=== PATIENT | male | born 1965 | race Caucasian/White ===

== ENCOUNTER 2019-05-12 03:27 | Outpatient (CLI) | payer BC, SELFPAY ==
--- NOTE | 2019-05-12 13:13 | PFT_ITS ---
PULMONARY FUNCTION TEST REPORT DATE OF SERVICE: May 12, 2019 REQUESTING PROVIDER: Dr. Crawford Spirometry shows borderline mild obstructive airways disease with no significant bronchodilator response. IMPRESSION: Borderline mild obstructive airways disease with no bronchodilator response. This may be a normal variant. Clinical correlation recommended. /[facility]/ ++++++++++++++++++++++++++++++++++++ METHACHOLINE CHALLENGE TEST REPORT DATE OF SERVICE: May 12, 2019 After borderline mild obstruction on baseline spirometry, patient underwent methacholine challenge testing up to a methacholine concentration of 8 mg/mL. At that point the patient had a 33% drop in FEV1. IMPRESSION: Strongly positive methacholine challenge test. Clinical correlation recommended. /[facility] D/
[2019-05-12] MEDS: Methacholine 100 MG VIAL IH (16:17)
[2019-05-12] MEDS: Inhaler, Assist Device 1 EACH MC (16:17)
[2019-05-12] MEDS: Albuterol HFA 18 GM 200 PUFF INH IH (16:18)
== END 2019-05-12 03:47 ==
PROVIDERS: PCP Nurse Practitioner Family; Visit Provider Internal Medicine
DX: J45.909 Unspecified asthma, uncomplicated (principal)
CPT/HCPCS: 94060; 95070; J7674

== ENCOUNTER 2019-08-09 00:42 | Outpatient (CLI) | payer BC, SELFPAY ==
--- NOTE | 2019-08-09 | DI.RAD_ITS ---
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 There is some loss of the lumbar lordosis. Mild left convex lumbar scoli osis noted. Minimal hypertrophic endplate spurring noted throughout the lumbar spine. Mild facet hy pertrophic changes noted as well. No other focal bony abnormality seen. The intervertebral disc spaces are maintained. IMPRESSION: Mild degenerative changes of the lumbar spine.
--- NOTE | 2019-08-09 | DI.RAD_ITS ---
EXAM: XR CERVICAL SP MACK TRAUMA 2-3V CLINICAL HISTORY: CHRONIC PAIN, ASSESS FOR DDD VS SPONLOARTHROPATHY, CERVICAL PAIN, M54.2 TECHNIQUE: COMPARISON: No exams were available for comparison FINDINGS: Two views were obtained. Prevertebral soft tissues appear intact. There is disc space narrowing at C5-6. There are moderate hypertrophic endplate changes also noted at C5-6, mild hypertrophic endplat e changes seen elsewhere throughout the cervical region. Mild anterior vertebral deformity of C7 may represent remote injury or developmental abnormality. Mild degenerative changes of the facet joints appear to be present. IMPRESSION: Mild degenerative changes as described above.
[2019-08-09 12:00] LABS: Abs Immature Grans 0.01 k/cumm (0.0-0.09); Absolute Basophil Count 0.02 k/cumm (0.0-0.2); Absolute Eosinophil Count 0.07 k/cumm (0.0-0.7); Absolute Lymphocyte Count 1.64 k/cumm (1.2-3.4); Basophils % 0.4; Eosinophils % 1.3; HCT 43.4 % (40.0-50.0); HGB 15.1 g/dL (13.5-17.5); Immature Grans % 0.2 %; Lymphocytes % 31.3; Mean Corp. HGB Concentration 34.8 g/dL (32.0-36.0); Mean Corpuscular Hemoglobin 32.6 pg (27.0-33.0); Mean Corpuscular Volume 93.7 fL (80-95); Mean Platelet Volume 9.4 fL (8.0-11.0); Monocytes % 13.4; Neutrophils % 53.4; Platelet Count 272 x1000/uL (130-400); RBC 4.63 m/cumm (4.50-6.00); RBC Distribution Width 12.2 % (11.8-14.1); White Blood Cell Count 5.24 k/cumm (4.4-10.8)
[2019-08-09 13:15] LABS: ALT 44 U/L (16-63); AST 26 U/L (15-37); Alkaline Phosphatase 69 U/L (46-116); Anion Gap 7.5 mmol/L (3-11); BUN 11 mg/dL (7-18); Bilirubin, Total 0.5 mg/dL (0.2-1.0); CO2 27.5 mmol/L (21.0-32.0); CREATININE 0.89 mg/dL (0.70-1.30); Chloride 104 mmol/L (98-107); Glucose 93 mg/dL (74-106); Sodium 139 mmol/L (136-145)
[2019-08-09 13:16] LABS: C-Reactive Protein < 0.05 mg/dL (0.0-0.3)
[2019-08-11 13:38] LABS: TB Interpretation Negative (Negative); TB1 Ag minus Nil 0.32 IU/ml; TB2 Ag minus Nil 0.16 IU/mL
[2019-08-11 17:03] LABS: HLA-B27 Result Positive
== END 2019-08-09 01:02 ==
PROVIDERS: Internal Medicine; PCP Nurse Practitioner Family; Visit Provider Internal Medicine Rheumatology
DX: M54.2 Cervicalgia (principal); G89.29 Other chronic pain; M47.812 Spondylosis without myelopathy or radiculopathy, cervical region; M50.322 Other cervical disc degeneration at C5-C6 level; M54.5 Low back pain; M47.816 Spondylosis without myelopathy or radiculopathy, lumbar region; M35.2 Behcet's disease; Z15.89 Genetic susceptibility to other disease; Z86.69 Personal history of other diseases of the nervous system and sense organs; J45.909 Unspecified asthma, uncomplicated
CPT/HCPCS: 36415; 80053; 86812; 72040; 72100; 85025; 86140; 86480